=== PATIENT | female | born 1945 | race Caucasian/White ===

== ENCOUNTER 2020-04-17 18:33 | Emergency (ER) | payer MEDICARE, OTHER ==
[~2020-04-17] VITALS: Ht 167.6 cm; Wt 68.0 kg
--- NOTE | 2020-04-17 18:50 | NUR ---
PT IS IN ROOM #1B. DR BEGUM EVALUATED THE PT.
[2020-04-17] MEDS ORDERED: DULO20CA PO (18:51)
[2020-04-17] MEDS ORDERED: AMLO10TA7 PO (18:51)
[2020-04-17] MEDS ORDERED: GABA600T12 PO (18:51)
[2020-04-17] MEDS ORDERED: ASPI81TA31 PO (18:51)
[2020-04-17] MEDS ORDERED: TRAZ-257 PO (18:51)
[2020-04-17] MEDS ORDERED: EPINEPHRINE 1:10,000 1 MG/10 ML DISP.SYRIN IV ONE (19:00)
[2020-04-17] MEDS ORDERED: TDAP DIPH,PERTUSS,TET VAC/PF 0.5 ML DISP.SYRIN IM ONE ×2 (19:00→19:02)
--- NOTE | 2020-04-17 19:10 | NUR ---
PATIENT IS AWAKE AND ALERT, NO ACUTE DISTRESS NOTED AT THIS TIME. PICKED UP BY PBX INSTALLER FOR CT SCAN.
[2020-04-17] MEDS ORDERED: LIDOCAINE 1%-EPI 1:100,000 20 ML VIAL TP ONE (19:15)
[2020-04-17] MEDS ORDERED: LIDOCAINE 1%-EPI 1:100,000 20 ML VIAL ONE (19:17)
--- NOTE | 2020-04-17 19:20 | NUR ---
PATIENT BACK FROM CT SCAN , AMBULATING WITH STAEDY GAIT, NO DISTRESS NOTED.
--- NOTE | 2020-04-17 19:50 | NUR ---
Dr. Clark in room for sutures.
--- NOTE | 2020-04-17 20:30 | NUR ---
Sutures placed by Dr. Clark. Bandage applied.
[2020-04-17 20:46] VITALS: BP 148/72
--- NOTE | 2020-04-17 20:46 | NUR ---
Patient discharged to home in stable condition. Written and verbal after care instructions given. Patient verbalizes understanding of instructions. Stressed follow up or return to ER for worsening s/s. Patient left with stable gait.
== END 2020-04-17 20:47 | disposition home or self-care (01) ==
LOC: ER 18:33
DX: S01.81XA Laceration without foreign body of other part of head, initial encounter (principal); W01.198A Fall on same level from slipping, tripping and stumbling with subsequent striking against other object, initial encounter; Y93.01 Activity, walking, marching and hiking; Y92.89 Other specified places as the place of occurrence of the external cause; F32.9 Major depressive disorder, single episode, unspecified; Z79.899 Other long term (current) drug therapy; Z86.73 Personal history of transient ischemic attack (TIA), and cerebral infarction without residual deficits; R03.0 Elevated blood-pressure reading, without diagnosis of hypertension; G31.9 Degenerative disease of nervous system, unspecified
CPT/HCPCS: 12014; 70450; 90471; 90715; 99284; J3490; A4217; A4663

== ENCOUNTER 2020-04-19 16:17 | Emergency (ER) | payer MEDICARE, OTHER ==
[~2020-04-19] VITALS: Ht 167.6 cm; Wt 77.1 kg
[~2020-04-19 16:17] MED LIST: AMLO10TA7 PO; ASPI81TA31 PO; DULO20CA PO; GABA600T12 PO; TRAZ-257 PO
--- NOTE | 2020-04-19 16:50 | NUR ---
Patient discharged to home in stable condition. Written and verbal after care instructions given. Patient verbalizes understanding of instructions. Stressed follow up or return to ER for worsening s/s. Patient ambulated with steady gait. NAD noted
[2020-04-19 16:57] VITALS: BP 133/81
== END 2020-04-19 16:50 | disposition home or self-care (01) ==
LOC: ER 16:19
DX: S01.81XD Laceration without foreign body of other part of head, subsequent encounter (principal); W19.XXXD Unspecified fall, subsequent encounter; Z85.828 Personal history of other malignant neoplasm of skin; F32.9 Major depressive disorder, single episode, unspecified; Z79.899 Other long term (current) drug therapy
CPT/HCPCS: A4663

== ENCOUNTER 2020-04-24 10:16 | Emergency (ER) | payer MEDICARE, OTHER ==
[~2020-04-24] VITALS: Ht 167.6 cm; Wt 77.1 kg
[2020-04-24] MEDS ORDERED: NEOMY/BACITRA/POLYMYXIN B OINT UD PACKET TP ONE ×2 (11:15→11:22)
--- NOTE | 2020-04-24 11:23 | NUR ---
Dcd instructions given patient left room ambulatory [id number]. no c/of pain triple ointment applied as ordered.
== END 2020-04-24 11:24 | disposition home or self-care (01) ==
LOC: ER 10:16
DX: S01.81XD Laceration without foreign body of other part of head, subsequent encounter (principal); X58.XXXD Exposure to other specified factors, subsequent encounter; Z85.828 Personal history of other malignant neoplasm of skin; F32.9 Major depressive disorder, single episode, unspecified; Z79.899 Other long term (current) drug therapy
CPT/HCPCS: A4663